=== PATIENT | male | born 1960 | race American Indian/Alaskan Native ===

== ENCOUNTER 2020-02-02 15:51 | Inpatient (IN) | payer OTHER ==
[~2020-02-02] VITALS: Ht 165.1 cm; Wt 63.1 kg
[2020-02-02] MEDS ORDERED: ALBUTEROL SULF 2.5 MG/0.5ML(0.5%) NEB SOLN HHN ONE (16:45)
[2020-02-02] MEDS ORDERED: levoFLOXacin 500MG 100 ML IV ONE (16:45)
[2020-02-02] MEDS ORDERED: IPRATROPIUM BROM 0.5 MG/2.5ML INH SOL HHN ONE (16:45)
[2020-02-02 17:23] LABS: Eosinophils # (auto) 0 10 ^3/uL (0-0.8); Mean Corpuscular Hemoglobin 37.4 pg (28.0-32.0)
[2020-02-02 17:25] LABS: Basophils # (auto) 0.2 10 ^3/uL (0-0.2); Basophils % (auto) 1.8 % (0.0-2.0); Eosinophils % (auto) 0.2 % (0.0-7.0); Hematocrit 30.2 % (41.0-53.0); Hemoglobin 10.4 g/dL (13.5-17.5); Lymphocytes # (auto) 1.9 10 ^3/uL (0.4-5.4); Lymphocytes % (auto) 21.1 % (10.0-50.0); Mean Corpuscular Hgb Conc. 34.3 g/dL (32.0-36.0); Mean Corpuscular Volume 108.9 fL (80.0-100.0); Monocytes # (auto) 0.7 10 ^3/uL (0-1.3); Monocytes % (auto) 7.7 % (0.0-12.0); Neutrophils # (auto) 6.1 10 ^3/uL (1.6-8.6); Neutrophils % (auto) 69.2 % (37.0-80.0); Platelet Count (auto) 93 10^3/uL (140-450); Red Blood Cells 2.77 10^6/uL (4.5-5.90); Red Cell Distribution Width 15.9 % (11.8-14.3); White Blood Cell 8.8 10^3/uL (4.4-10.8)
[2020-02-02 17:36] LABS: Alanine Aminotransferase 38 U/L (16-61); Albumin 2.6 g/dL (3.4-5.0); Anion Gap 9 (5-15); Aspartate Aminotransferase 107 U/L (15-37); BUN/Creatinine Ratio 12.5; Blood Urea Nitrogen 18 mg/dL (7-18); Calcium 8.4 mg/dL (8.5-10.1); Carbon Dioxide 20 mmol/L (21-32); Chloride 103 mmol/L (98-107); GFR African American 64 mL/min; GFR Non-African American 53 mL/min; Glucose 144 mg/dL (74-106); Potassium 3.7 mmol/L (3.5-5.1); Sodium 132 mmol/L (136-145)
[2020-02-02 17:40] LABS: Alkaline Phosphatase 89 U/L (45-117); Total Protein 7.3 g/dL (6.4-8.2)
[2020-02-02 17:41] LABS: Lactic Acid w/Reflex 2.1 mmol/L (0.4-2.0)
[2020-02-02] MEDS ORDERED: MORPHINE SULF INJ 2 MG/ML SYRINGE 1ML IV PRN (18:30)
[2020-02-02] MEDS ORDERED: traMADol HCL 50 MG TAB PO PRN (18:30)
[2020-02-02] MEDS ORDERED: ACETAMINOPHEN 500 MG TAB PO PRN (18:30)
[2020-02-02] MEDS ORDERED: TEMAZEPAM 15 MG CAP PO PRN (18:30)
[2020-02-02] MEDS ORDERED: OSELTAMIVIR 75 MG CAP PO ONE (18:30)
[2020-02-02] MEDS ORDERED: LACTULOSE 20Gm/30ML SOLN PO PRN (18:30)
[2020-02-02] MEDS ORDERED: PROMETHAZINE HCL 25 MG/ML 1ML IV PRN (18:30)
[2020-02-02] MEDS ORDERED: NITROGLYCERIN 0.4 MG SL TAB SL PRN (18:30)
[2020-02-02] MEDS ORDERED: ALBUTEROL SULF 2.5 MG/0.5ML(0.5%) NEB SOLN NEB PRN (18:30)
[2020-02-02 18:48] VITALS: BP 122/82
[2020-02-02] MEDS: methylPREDNISolone SOD SUCC 40 MG/ML VL IV SCH (19:08)
[2020-02-02] MEDS ORDERED: IOHEXOL 350 MG/ML 100ML IJ ONE (20:08)
[2020-02-02 20:53] VITALS: BP 146/84
[2020-02-02 21:00] VITALS: BP 146/84
[2020-02-02] MEDS: FAMOTIDINE 20 MG TAB PO SCH (21:28)
[2020-02-02] MEDS: SODIUM CHLOR 0.9% PF (SALINE LOCK) 10ML VIAL/SYR IV SCH (21:28)
[2020-02-02] MEDS: SODIUM CHLORIDE 0.9% 1,000 ML IV SCH (21:30)
[2020-02-02 23:06] LABS: Urine Bacteria FEW /hpf (None Seen); Urine Blood Negative /uL (Negative); Urine Hyaline Cast MANY /lpf (0 - 2); Urine Mucus FEW (None Seen); Urine Specific Gravity 1.021 (1.001-1.035); Urine WBC 2 /hpf (0 - 3)
[2020-02-02 23:09] LABS: Alcohol, Urine < 3.0 mg/dL (0-5); Amphetamine Screen, Urine NEGATIVE (NEGATIVE); Barbiturate Scree,Urine NEGATIVE (NEGATIVE); Benzodiazephine Screen, Urine NEGATIVE (NEGATIVE); Cannabinoid Screen, Urine NEGATIVE (NEGATIVE); Cocaine Screen, Urine NEGATIVE (NEGATIVE); Opiate Scree,Urine NEGATIVE (NEGATIVE); Phencyclidine Screen, Urine NEGATIVE (NEGATIVE)
[2020-02-03] MEDS: IPRATROPIUM BROM 0.5 MG/2.5ML INH SOL NEB SCH ×4 (00:13→18:58)
[2020-02-03] MEDS: ALBUTEROL SULF 2.5 MG/0.5ML(0.5%) NEB SOLN NEB SCH ×4 (00:13→18:59)
[2020-02-03 05:00] VITALS: BP 121/69
[2020-02-03 05:54] LABS: Basophils # (auto) 0 10 ^3/uL (0-0.2); Basophils % (auto) 0.4 % (0.0-2.0); Eosinophils # (auto) 0 10 ^3/uL (0-0.8); Hematocrit 27.2 % (41.0-53.0); Hemoglobin 9.6 g/dL (13.5-17.5); Lymphocytes % (auto) 17.1 % (10.0-50.0); Mean Corpuscular Hemoglobin 38.1 pg (28.0-32.0); Mean Corpuscular Hgb Conc. 35.4 g/dL (32.0-36.0); Mean Corpuscular Volume 107.6 fL (80.0-100.0); Monocytes # (auto) 0.2 10 ^3/uL (0-1.3); Monocytes % (auto) 4.1 % (0.0-12.0); Neutrophils # (auto) 4.5 10 ^3/uL (1.6-8.6); Neutrophils % (auto) 78.4 % (37.0-80.0); Nucleated Red Blood Cells % 0.1 %; Platelet Count (auto) 76 10^3/uL (140-450); Red Blood Cells 2.53 10^6/uL (4.5-5.90); Red Cell Distribution Width 15.5 % (11.8-14.3); White Blood Cell 5.7 10^3/uL (4.4-10.8)
[2020-02-03] MEDS: methylPREDNISolone SOD SUCC 40 MG/ML VL IV SCH (06:00)
[2020-02-03] MEDS: SODIUM CHLOR 0.9% PF (SALINE LOCK) 10ML VIAL/SYR IV SCH ×3 (06:02→21:42)
[2020-02-03 06:09] LABS: INR 1.53 (0.9-1.15); Partial Thromboplastin Time 34.5 sec (23.64-32.05)
[2020-02-03 06:12] LABS: Albumin 1.8 g/dL (3.4-5.0); BUN/Creatinine Ratio 14.7; Calcium 7.8 mg/dL (8.5-10.1); Magnesium 1.7 mg/dL (1.6-2.6); Potassium 3.7 mmol/L (3.5-5.1)
[2020-02-03 06:15] LABS: Total Protein 6.1 g/dL (6.4-8.2)
[2020-02-03 06:22] LABS: Lactic Acid w/Reflex 2.5 mmol/L (0.4-2.0)
[2020-02-03] MEDS: SODIUM CHLORIDE 0.9% 1,000 ML IV SCH ×3 (08:06→17:34)
[2020-02-03 09:00] VITALS: BP 114/70
[2020-02-03 09:04] LABS: Folate (Folic Acid) 0.59 ng/mL (5.38-24)
[2020-02-03] MEDS ORDERED: OSELTAMIVIR 30 MG CAP PO SCH (10:00)
[2020-02-03] MEDS: ENOXAPARIN SOD 40 MG/0.4 ML SYRINGE SC SCH (10:20)
[2020-02-03] MEDS: cefTRIAXone 1GM/50ML D5W 50 ML IV SCH (10:20)
[2020-02-03] MEDS: ENALAPRIL MALEATE 2.5 MG TAB PO SCH (10:20)
[2020-02-03] MEDS: AZITHROMYCIN 500MG/ 250ML 250 ML IV SCH (10:21)
[2020-02-03] MEDS ORDERED: FOLIC ACID 1 MG in D5W 5% 50 ML IV ONE (11:00)
[2020-02-03 11:11] LABS: Cholesterol 148 mg/dL (< 200)
[2020-02-03 11:13] LABS: HDL Cholesterol 12 mg/dL (40-59); LDL Cholesterol 110 mg/dL (< 100); Triglycerides 181 mg/dL (< 150)
[2020-02-03] MEDS ORDERED: FOLIC ACID 1 MG, MULTIPLE VITAMIN 10 ML, MAGNESIUM SULF SDV 50% 8 MEQ, THIAMINE INJ 100... INJ SCH ×5 (12:00)
[2020-02-03 12:26] LABS: Lactic Acid w/Reflex 2.3 mmol/L (0.4-2.0)
[2020-02-03 13:00] VITALS: BP 113/67
[2020-02-03 17:00] VITALS: BP 129/77
[2020-02-03] MEDS: FAMOTIDINE 20 MG TAB PO SCH (21:41)
[2020-02-03 22:00] VITALS: BP 117/64
[2020-02-03] MEDS: MAGNESIUM OXIDE 400 MG TAB PO SCH (22:00)
[2020-02-04] MEDS: SODIUM CHLORIDE 0.9% 1,000 ML IV SCH ×2 (00:40→06:34)
[2020-02-04] MEDS: IPRATROPIUM BROM 0.5 MG/2.5ML INH SOL NEB SCH ×2 (00:40→07:38)
[2020-02-04] MEDS: ALBUTEROL SULF 2.5 MG/0.5ML(0.5%) NEB SOLN NEB SCH ×2 (00:41→07:38)
[2020-02-04 02:06] VITALS: BP 119/69
[2020-02-04 05:00] VITALS: BP 119/70
[2020-02-04] MEDS: SODIUM CHLOR 0.9% PF (SALINE LOCK) 10ML VIAL/SYR IV SCH (05:43)
[2020-02-04] MEDS ORDERED: LEVOTHYROXINE SODIUM 25 MCG TAB PO SCH (07:00)
[2020-02-04 08:35] VITALS: BP 111/61
[2020-02-04] MEDS: cefTRIAXone 1GM/50ML D5W 50 ML IV SCH (09:00)
[2020-02-04] MEDS: AZITHROMYCIN 500MG/ 250ML 250 ML IV SCH (10:00)
[2020-02-04] MEDS: MAGNESIUM OXIDE 400 MG TAB PO SCH (10:00)
[2020-02-04] MEDS ORDERED: FOLIC ACID 1 MG in D5W 5% 50 ML IV SCH (10:00)
[2020-02-04] MEDS: ENALAPRIL MALEATE 2.5 MG TAB PO SCH (10:00)
[2020-02-04] MEDS: ENOXAPARIN SOD 40 MG/0.4 ML SYRINGE SC SCH (10:00)
[2020-02-06 08:51] LABS: Hepatitis B Surface Antibody Negative
[2020-02-06 09:24] LABS: Hepatitis A Total Antibody Negative
[2020-02-06 10:03] LABS: Hepatitis A Ab IgM Negative; Hepatitis B Core Total AB Negative
[2020-02-06 10:04] LABS: Hepatitis B Core IgM Negative; Hepatitis B Surface Antigen Negative (Negative); Hepatitis C Antibody Negative (Negative)
== END 2020-02-04 10:15 | disposition left against medical advice (07) | DRG 871 ==
LOC: ER 15:54 → TELE 15:55 → TELE-WESTW 20:50
PROVIDERS: ADMIT Internal Medicine; ATTEND Internal Medicine
PROC: 0W9G3ZZ Drainage of Peritoneal Cavity, Percutaneous Approach (ICD-10-PCS; principal; 2020-02-04)
DX: A41.9 Sepsis, unspecified organism (principal); J18.9 Pneumonia, unspecified organism; J44.1 Chronic obstructive pulmonary disease with (acute) exacerbation; J90 Pleural effusion, not elsewhere classified; J44.0 Chronic obstructive pulmonary disease with (acute) lower respiratory infection; F17.200 Nicotine dependence, unspecified, uncomplicated; K70.31 Alcoholic cirrhosis of liver with ascites; F10.10 Alcohol abuse, uncomplicated; I10 Essential (primary) hypertension; E53.8 Deficiency of other specified B group vitamins; Z71.6 Tobacco abuse counseling
CPT/HCPCS: 10022; 36415; 49083; 71046; 71275; 76700; 76942; 80053; 80061; 80074; 80307; 81001; 82105; 82607; 82746; 83036; 83605; 83735; 83880; 84439; 84443; 84484; 85025; 85379; 85610; 85730; 86703; 86704; 86706; 86708; 86803; 87040; 87045; 87070; 87086; 87205; 87340; 87427; 87493; 87804; 89051; 93005; 93306; 93970; 94640; 94644; G0378; G9035; J0696; J1956; J7060

== ENCOUNTER 2020-05-28 12:02 | Emergency (ER) | payer OTHER ==
[~2020-05-28] VITALS: Ht 167.6 cm; Wt 70.3 kg
[2020-05-28 14:27] VITALS: BP 118/70
[2020-05-28 14:33] LABS: Basophils # (auto) 0.1 10 ^3/uL (0-0.2); Eosinophils # (auto) 0.3 10 ^3/uL (0-0.8); Lymphocytes % (auto) 22.4 % (10.0-50.0); Monocytes # (auto) 0.7 10 ^3/uL (0-1.3); Neutrophils # (auto) 3.2 10 ^3/uL (1.6-8.6); Platelet Count (auto) 90 10^3/uL (140-450); White Blood Cell 5.6 10^3/uL (4.4-10.8)
[2020-05-28 14:34] LABS: Basophils % (auto) 1.5 % (0.0-2.0); Eosinophils % (auto) 5.9 % (0.0-7.0); Hematocrit 27.2 % (41.0-53.0); Hemoglobin 9.2 g/dL (13.5-17.5); Lymphocytes # (auto) 1.3 10 ^3/uL (0.4-5.4); Mean Corpuscular Hemoglobin 35.9 pg (28.0-32.0); Mean Corpuscular Hgb Conc. 33.8 g/dL (32.0-36.0); Mean Corpuscular Volume 106.1 fL (80.0-100.0); Monocytes % (auto) 12.2 % (0.0-12.0); Red Blood Cells 2.57 10^6/uL (4.5-5.90)
[2020-05-28 14:52] LABS: Albumin 2.2 g/dL (3.4-5.0); Calcium 8.3 mg/dL (8.5-10.1); Potassium 4.3 mmol/L (3.5-5.1)
[2020-05-28 14:56] LABS: BUN/Creatinine Ratio 14.9; Bilirubin, Total 2.5 mg/dL (0.2-1.0); Total Protein 6.3 g/dL (6.4-8.2)
[2020-05-28] MEDS ORDERED: MORPHINE SULF INJ 2 MG/ML SYRINGE 1ML IV PRN ×2 (15:30)
[2020-05-28] MEDS ORDERED: ACETAMINOPHEN 325 MG TAB PO PRN (15:30)
[2020-05-28] MEDS ORDERED: LORazepam 0.5 MG TAB PO PRN (15:30)
[2020-05-28] MEDS ORDERED: ALBUMIN 25% 50 ML IV ONE (15:30)
[2020-05-28] MEDS ORDERED: HYDROcodone-ACET 5/325MG TAB PO PRN (15:30)
[2020-05-28] MEDS ORDERED: ALUM & MAG HYDROX-SIMETH LIQ(MAALOX) 30 ML PO PRN (15:30)
[2020-05-28] MEDS ORDERED: ONDANSETRON HCL 4 MG/2 ML VIAL IV PRN (15:30)
[2020-05-28] MEDS ORDERED: NITROGLYCERIN 0.4 MG SL TAB SL PRN (15:30)
[2020-05-28] MEDS ORDERED: DOCUSATE SOD 100 MG CAP PO PRN (15:30)
[2020-05-28] MEDS ORDERED: FUROSEMIDE 40 MG/4 ML VIAL IV SCH (18:00)
[2020-05-28] MEDS ORDERED: ALBUMIN 25% 50 ML IV SCH (18:00)
[2020-05-28] MEDS ORDERED: SODIUM CHLOR 0.9% PF (SALINE LOCK) 10ML VIAL/SYR IV SCH (22:00)
[2020-05-29] MEDS ORDERED: PANTOPRAZOLE 40 MG/10 ML VIAL INJ IV SCH (10:00)
[2020-05-29] MEDS ORDERED: SPIRONOLACTONE 25 MG TAB PO SCH (10:00)
== END 2020-05-28 16:03 | disposition left against medical advice (07) ==
LOC: ER 12:02
DX: K74.60 Unspecified cirrhosis of liver (principal); R14.0 Abdominal distension (gaseous); J90 Pleural effusion, not elsewhere classified; I50.9 Heart failure, unspecified; J44.9 Chronic obstructive pulmonary disease, unspecified; F17.210 Nicotine dependence, cigarettes, uncomplicated
CPT/HCPCS: 36415; 71045; 74176; 80053; 83690; 85025

== ENCOUNTER 2020-06-12 20:10 | Inpatient (IN) | payer OTHER ==
[~2020-06-12] VITALS: Ht 167.6 cm; Wt 79.8 kg
[2020-06-12 22:18] LABS: Basophils # (auto) 0.1 10 ^3/uL (0-0.2); Eosinophils # (auto) 0.4 10 ^3/uL (0-0.8); Hemoglobin 9.7 g/dL (13.5-17.5); Lymphocytes # (auto) 1.3 10 ^3/uL (0.4-5.4)
[2020-06-12 22:20] LABS: Basophils % (auto) 1.1 % (0.0-2.0); Eosinophils % (auto) 7.7 % (0.0-7.0); Hematocrit 28.8 % (41.0-53.0); Lymphocytes % (auto) 25.1 % (10.0-50.0); Mean Corpuscular Hemoglobin 35.7 pg (28.0-32.0); Mean Corpuscular Hgb Conc. 33.7 g/dL (32.0-36.0); Monocytes # (auto) 0.7 10 ^3/uL (0-1.3); Monocytes % (auto) 13.1 % (0.0-12.0); Neutrophils # (auto) 2.7 10 ^3/uL (1.6-8.6); Nucleated Red Blood Cells % 0.1 %; Red Blood Cells 2.71 10^6/uL (4.5-5.90); Red Cell Distribution Width 15.5 % (11.8-14.3); White Blood Cell 5.1 10^3/uL (4.4-10.8)
[2020-06-12 22:23] LABS: Platelet Count (auto) 79 10^3/uL (140-450)
[2020-06-12] MEDS ORDERED: FUROSEMIDE 20 MG/2 ML VIAL IV ONE (22:30)
[2020-06-12] MEDS ORDERED: levoFLOXacin 750MG 150 ML IV ONE (22:30)
[2020-06-12] MEDS ORDERED: SPIRONOLACTONE 25 MG TAB PO ONE (22:30)
[2020-06-12 22:34] LABS: INR 1.33 (0.9-1.15); Partial Thromboplastin Time 30.1 sec (23.64-32.05)
[2020-06-12 22:35] LABS: Albumin 2.3 g/dL (3.4-5.0); Anion Gap 8 (5-15); Calcium 8.3 mg/dL (8.5-10.1); Carbon Dioxide 20 mmol/L (21-32); Chloride 109 mmol/L (98-107); Glucose 88 mg/dL (74-106); Potassium 3.8 mmol/L (3.5-5.1); Sodium 137 mmol/L (136-145)
[2020-06-12 22:44] LABS: Alanine Aminotransferase 25 U/L (16-61); Alkaline Phosphatase 82 U/L (45-117); Aspartate Aminotransferase 46 U/L (15-37); BUN/Creatinine Ratio 16.3; Bilirubin, Total 2.7 mg/dL (0.2-1.0); Blood Urea Nitrogen 22 mg/dL (7-18); GFR African American 69 mL/min; GFR Non-African American 57 mL/min; Total Protein 6.3 g/dL (6.4-8.2)
[2020-06-13 00:48] LABS: Urine Bacteria FEW /hpf (None Seen); Urine Blood Negative /uL (Negative); Urine Hyaline Cast MOD /lpf (0 - 2); Urine Mucus FEW (None Seen); Urine Specific Gravity 1.021 (1.001-1.035); Urine WBC 4 /hpf (0 - 3)
[2020-06-13 00:58] LABS: Amphetamine Screen, Urine NEGATIVE (NEGATIVE); Barbiturate Scree,Urine NEGATIVE (NEGATIVE); Benzodiazephine Screen, Urine NEGATIVE (NEGATIVE); Cannabinoid Screen, Urine NEGATIVE (NEGATIVE); Cocaine Screen, Urine NEGATIVE (NEGATIVE); Opiate Scree,Urine NEGATIVE (NEGATIVE); Phencyclidine Screen, Urine NEGATIVE (NEGATIVE)
[2020-06-13] MEDS ORDERED: ONDANSETRON HCL 4 MG/2 ML VIAL IV PRN (03:00)
[2020-06-13] MEDS ORDERED: TEMAZEPAM 15 MG CAP PO PRN (03:00)
[2020-06-13] MEDS ORDERED: ACETAMINOPHEN 325 MG TAB PO PRN (03:00)
[2020-06-13 04:30] VITALS: BP 122/69
--- NOTE | 2020-06-13 04:30 | NUR ---
MS admit from ER to Covid-19 Unit TERRI,ROY admitted to tele/MS. Patient oriented to CELESTE HOOEKR, primary RN, unit, room, bed, and unit policies regarding patient care and visiting hours. Patient is alert and oriented x4. Patient does report periods of confusion. Patient denies shortness of breath or pain at this time. No sign/symptoms of distress noted or verbalized at this time. Instructed on plan of care and encouraged patient to call for assistance as needed, patient verbalized understanding. Bed is locked in lowest position, side rails x2 are up, call light is within reach, and bed alarm is on.
--- NOTE | 2020-06-13 05:10 | NUR ---
Picture Erythema noted to right lower leg. Patient states the erythema developed after his last hospital visit. Picture taken of right lower leg for reference.
[2020-06-13 05:32] VITALS: BP 122/69
--- NOTE | 2020-06-13 06:51 | NUR ---
MRSA Swab MRSA swab collected and sent to lab via bullet.
--- NOTE | 2020-06-13 07:30 | NUR ---
Opening Shift Note Assumed care of patient, awake and alert. No S/S of distress/SOB or pain on room air. Instructed on POC and to call for assist PRN, will continue to monitor for changes Q1hr and PRN. Bed in low and locked position, rails up x2, no-slip socks on.
[2020-06-13 08:40] VITALS: BP 124/76
[2020-06-13] MEDS: PANTOPRAZOLE 40 MG TAB PO SCH (09:21)
[2020-06-13] MEDS: LACTULOSE 20Gm/30ML SOLN PO SCH ×2 (09:21→22:19)
[2020-06-13] MEDS ORDERED: SPIRONOLACTONE 25 MG TAB PO SCH (10:00)
[2020-06-13] MEDS ORDERED: FUROSEMIDE 40 MG TAB PO SCH (10:00)
--- NOTE | 2020-06-13 10:34 | NUR ---
Assessment Patient is a 59-year-old male who is alert and oriented. Prior to admission patient live home with his Janie. Patient informed me he can care for his own ADLs. Patient informed me he does not have any medical equipment or home oxygen at home. Per patient he will return home to his prior living arrangements post discharge and his daughter Rajni will transport him home. Advised patient there is a social service consult for advance directive and cane. Patient accepted the advance directive information. Informed patient his health plan does not cover a cane. Patient informed me he does not need any medical equipment at this time. Informed patient I will give the advance directive information to his bedside nurse . Informed patient he has the right to participate in all discharge planning. Patient verbalized understanding and agreed to discharge plan. Addendum: 06/13/20 at 1035 by HEIKE MANSFIELD Amended: Links added.
[2020-06-13 12:40] VITALS: BP 110/76
--- NOTE | 2020-06-13 13:00 | NUR ---
DR RYDER AT BEDSIDE NEW ORDERS TO BE ADDED.
--- NOTE | 2020-06-13 15:12 | NUR ---
VERIFIED PATIENT NEEDS PARACENTESIS CALL FROM [facility]OLOGY-[facility]TR[facility] TO CONFIRM THAT PATIENT WILL NEED PARACENTESIS PRIOR TO COVID RESULTS AVAILABILITY, PER DR RYDER, PROCEED WITH PARACENTESIS TODAY. MESSAGE LEFT WITH ULTRASOUND.
[2020-06-13 17:00] VITALS: BP 123/76
--- NOTE | 2020-06-13 19:30 | NUR ---
Opening Shift Note Assumed care of patient, awake and alert x4. Patient denies shortness of breath or pain at this time. Patient is on room air, SPO2: 92% at this time. Instructed on plan of care and encouraged patient to call for assistance as needed, patient verbalized understanding. Bed is locked in lowest position, side rails x 2 are up, call light is within reach, and bed alarm is on.
[2020-06-13 22:00] VITALS: BP 107/65
[2020-06-13] MEDS ORDERED: levoFLOXacin 500MG 100 ML IV SCH (22:00)
--- NOTE | 2020-06-13 22:28 | NUR ---
Spoke with GERONIMO Ramsay RE: Wheezing Notified GERONIMO Ramsay that patient has increased wheezing throughout lungs. GERONIMO Ramsay made aware that patient has a paracentesis pending that will take place tomorrow. Orders received for Lasix 20mg IV x1. Order read back and verified. Will carry out as received.
[2020-06-13] MEDS ORDERED: FUROSEMIDE 20 MG/2 ML VIAL IV ONE (22:30)
[2020-06-14 05:39] VITALS: BP 101/60
[2020-06-14 06:23] LABS: Basophils # (auto) 0 10 ^3/uL (0-0.2); Basophils % (auto) 0.7 % (0.0-2.0); Eosinophils # (auto) 0.7 10 ^3/uL (0-0.8); Eosinophils % (auto) 12.8 % (0.0-7.0); Hematocrit 25.7 % (41.0-53.0); Hemoglobin 8.7 g/dL (13.5-17.5); Lymphocytes # (auto) 1.2 10 ^3/uL (0.4-5.4); Lymphocytes % (auto) 21.7 % (10.0-50.0); Mean Corpuscular Hemoglobin 35.7 pg (28.0-32.0); Monocytes # (auto) 0.7 10 ^3/uL (0-1.3); Monocytes % (auto) 12.7 % (0.0-12.0); Neutrophils # (auto) 2.9 10 ^3/uL (1.6-8.6); Neutrophils % (auto) 52.1 % (37.0-80.0); Nucleated Red Blood Cells % 0.2 %; Platelet Count (auto) 62 10^3/uL (140-450); Red Blood Cells 2.45 10^6/uL (4.5-5.90); White Blood Cell 5.6 10^3/uL (4.4-10.8)
[2020-06-14 06:44] LABS: Potassium 3.2 mmol/L (3.5-5.1)
[2020-06-14 06:52] LABS: Albumin 1.9 g/dL (3.4-5.0); BUN/Creatinine Ratio 19.3; Bilirubin, Total 2.4 mg/dL (0.2-1.0); Calcium 8.3 mg/dL (8.5-10.1); Total Protein 5.3 g/dL (6.4-8.2)
--- NOTE | 2020-06-14 07:24 | NUR ---
Opening Shift Note Assumed care of patient, resting comfortably. No S/S of distress/SOB or pain. Instructed on POC and to call for assist PRN, will continue to monitor for changes Q1hr and PRN. Bed in low and locked position, rails up x2, no-slip socks on.
[2020-06-14 09:00] VITALS: BP 101/67
[2020-06-14] MEDS ORDERED: cefTRIAXone 1GM/50ML D5W 50 ML IV SCH (09:00)
[2020-06-14] MEDS: PANTOPRAZOLE 40 MG TAB PO SCH (09:04)
--- NOTE | 2020-06-14 09:40 | NUR ---
PATIENT CONSENTED FOR PARACENTESIS
[2020-06-14] MEDS: LACTULOSE 20Gm/30ML SOLN PO SCH (10:00)
[2020-06-14] MEDS ORDERED: MULTIPLE VITAMINS W/ MINERALS TAB PO SCH (10:00)
[2020-06-14] MEDS ORDERED: THIAMINE HCL 100 MG TAB PO SCH (10:00)
[2020-06-14] MEDS ORDERED: FOLIC ACID 1 MG TAB PO SCH (10:00)
[2020-06-14] MEDS ORDERED: FUROSEMIDE 40 MG/4 ML VIAL IV SCH (10:00)
[2020-06-14] MEDS ORDERED: AZITHROMYCIN 250 MG TAB PO SCH (10:00)
--- NOTE | 2020-06-14 11:25 | NUR ---
PATIENT REQUESTING TO GO DOWNSTAIRS TO SMOKE EDUCATED PATIENT ON NEED TO REMAIN ISOLATED UNTIL RESULTS FROM THE COVID TEST RETURN, OFFERED PATIENT NICOTINE PATCH BUT HE REFUSES. EDUCATED PATIENT ON HOSPITAL POLICY OF NO SMOKING AND THAT UNFORTUNATELY HE CANNOT RETURN TO HIS ROOM AFTER GOING DOWNSTAIRS AND THAT HE NEEDS TO REMAIN IN THE ROOM, PATIENT VERBALIZES UNDERSTANDING AND WISHES TO LEAVE THE HOSPITAL AMA, HE HAS BEEN WAITING FOR A PARACENTESIS. INFORMED PATIENT THAT HE STILL NEEDS THIS PROCEDURE AND THAT IF HE CAN WAIT FOR IT AND HIS RESULTS TO COME BACK WE CAN RE-EVALUATE IF HE CAN GO DOWNSTAIRS TO SMOKE. PATIENT STILL NOT UNDERSTANDING THAT HE CANNOT LEAVE TO SMOKE AND RETURN AT THIS MOMENT. PATIENT TRYING TO FIND A RIDE HOME.
--- NOTE | 2020-06-14 12:50 | NUR ---
PATIENT AMA PATIENT UNWILLING TO WAIT FOR COVID RESULTS SO THAT HE MAY POSSIBLY BE ABLE TO GO DOWNSTAIRS TO SMOKE AND RETURN TO ROOM, HE IS ALSO UNWILLING TO RECEIVE A NICOTINE PATCH. PATIENT STATED HES BEEN WAITING FOR 2 DAYS FOR HIS PARACENTESIS WELL AND THAT HE IS UNWILLING TO WAIT ANY LONGER. PATIENT SIGNED HIMSELF OUT AMA, DR RYDER AND CHARGE NURSE NOTIFIED. IV REMOVED WITH CATHETER INTACT AND LAZO CATHETER D/C'D. PATIENTS LEFT UNIT WITH ESCORT OF SECURITY AND EVS, DOWNSTAIRS TO SMOKING AREA IN NO DISTRESS AND WITH ALL PERSONAL BELONGINGS.
[2020-06-14 17:00] VITALS: BP 116/70
== END 2020-06-14 12:30 | disposition left against medical advice (07) | DRG 441 ==
LOC: EDBD 20:10 → EDSEX 20:10 → ER 20:13 → OVERFLOW 20:14 → EAST 06-13 04:30
PROVIDERS: ADMIT Nurse Practitioner; ATTEND Internal Medicine
DX: K72.90 Hepatic failure, unspecified without coma (principal); E43 Unspecified severe protein-calorie malnutrition; N17.9 Acute kidney failure, unspecified; K70.31 Alcoholic cirrhosis of liver with ascites; I50.9 Heart failure, unspecified; F10.10 Alcohol abuse, uncomplicated; Z20.828 Contact with and (suspected) exposure to other viral communicable diseases; Z53.29 Procedure and treatment not carried out because of patient's decision for other reasons; F17.210 Nicotine dependence, cigarettes, uncomplicated; Y90.9 Presence of alcohol in blood, level not specified; J44.9 Chronic obstructive pulmonary disease, unspecified
CPT/HCPCS: 36415; 71045; 80053; 80307; 81001; 82140; 82728; 83880; 84484; 85025; 85610; 85730; 86850; 86900; 86901; 87081; 93005; 96365; 96375; G0378; J0696; J1956

== ENCOUNTER 2020-06-15 19:53 | Inpatient (IN) | payer OTHER ==
[~2020-06-15] VITALS: Ht 167.6 cm; Wt 72.5 kg
[2020-06-15 20:57] LABS: Basophils # (auto) 0.1 10 ^3/uL (0-0.2); Eosinophils # (auto) 0.6 10 ^3/uL (0-0.8); Hemoglobin 9.5 g/dL (13.5-17.5); Mean Corpuscular Volume 105.4 fL (80.0-100.0)
[2020-06-15 20:59] LABS: Basophils % (auto) 1.3 % (0.0-2.0); Eosinophils % (auto) 8.9 % (0.0-7.0); Hematocrit 28.4 % (41.0-53.0); Lymphocytes % (auto) 28.9 % (10.0-50.0); Mean Corpuscular Hemoglobin 35.2 pg (28.0-32.0); Mean Corpuscular Hgb Conc. 33.4 g/dL (32.0-36.0); Monocytes # (auto) 0.7 10 ^3/uL (0-1.3); Monocytes % (auto) 10.2 % (0.0-12.0); Neutrophils # (auto) 3.6 10 ^3/uL (1.6-8.6); Neutrophils % (auto) 50.7 % (37.0-80.0); Platelet Count (auto) 73 10^3/uL (140-450); Red Cell Distribution Width 15.5 % (11.8-14.3)
[2020-06-15 21:11] LABS: Albumin 2.2 g/dL (3.4-5.0); BUN/Creatinine Ratio 15.5; Calcium 7.9 mg/dL (8.5-10.1); Potassium 3.3 mmol/L (3.5-5.1)
[2020-06-15 21:14] LABS: Total Protein 6.2 g/dL (6.4-8.2)
[2020-06-15 21:15] LABS: INR 1.33 (0.9-1.15); Partial Thromboplastin Time 34.2 sec (23.0-31.2)
[2020-06-15] MEDS ORDERED: LORazepam 2MG/ML-1ML VIAL IV ONE (23:15)
[2020-06-15] MEDS ORDERED: ALUM & MAG HYDROX-SIMETH LIQ(MAALOX) 30 ML PO PRN (23:30)
[2020-06-15] MEDS ORDERED: ONDANSETRON HCL 4 MG/2 ML VIAL IV PRN ×2 (23:30)
[2020-06-15] MEDS ORDERED: ACETAMINOPHEN 325 MG TAB PO PRN (23:30)
[2020-06-15] MEDS ORDERED: MORPHINE SULF INJ 2 MG/ML SYRINGE 1ML IV PRN (23:30)
[2020-06-15] MEDS ORDERED: DOCUSATE SOD 100 MG CAP PO PRN (23:30)
[2020-06-15] MEDS ORDERED: HYDROcodone-ACET 5/325MG TAB PO PRN (23:30)
[2020-06-15] MEDS ORDERED: LORazepam 0.5 MG TAB PO PRN (23:30)
[2020-06-15] MEDS ORDERED: LORazepam 2MG/ML-1ML VIAL ONE (23:30)
[2020-06-16] VITALS (7 sets, daily range): BP systolic 118–132; BP diastolic 66–95
[2020-06-16] MEDS: SODIUM CHLORIDE 0.9% 1,000 ML IV SCH ×2 (00:36→02:30)
[2020-06-16] MEDS ORDERED: levoFLOXacin 500MG 100 ML IV ONE (01:00)
[2020-06-16] MEDS ORDERED: FUROSEMIDE 20 MG TAB PO ONE (02:15)
[2020-06-16] MEDS: ALBUTEROL SULF 2.5 MG/0.5ML(0.5%) NEB SOLN NEB SCH ×6 (02:41→23:51)
[2020-06-16] MEDS: IPRATROPIUM BROM 0.5 MG/2.5ML INH SOL NEB SCH ×5 (06:33→23:51)
[2020-06-16 08:21] LABS: Basophils # (auto) 0 10 ^3/uL (0-0.2); Red Blood Cells 2.56 10^6/uL (4.5-5.90); White Blood Cell 6.7 10^3/uL (4.4-10.8)
[2020-06-16 08:23] LABS: Basophils % (auto) 0.5 % (0.0-2.0); Eosinophils # (auto) 0.5 10 ^3/uL (0-0.8); Eosinophils % (auto) 7.9 % (0.0-7.0); Hematocrit 26.9 % (41.0-53.0); Hemoglobin 9.1 g/dL (13.5-17.5); Lymphocytes # (auto) 1.6 10 ^3/uL (0.4-5.4); Lymphocytes % (auto) 23.9 % (10.0-50.0); Mean Corpuscular Hemoglobin 35.7 pg (28.0-32.0); Mean Corpuscular Hgb Conc. 33.9 g/dL (32.0-36.0); Mean Corpuscular Volume 105.5 fL (80.0-100.0); Monocytes # (auto) 0.7 10 ^3/uL (0-1.3); Monocytes % (auto) 10.2 % (0.0-12.0); Neutrophils # (auto) 3.8 10 ^3/uL (1.6-8.6); Neutrophils % (auto) 57.5 % (37.0-80.0); Nucleated Red Blood Cells % 0.1 %; Platelet Count (auto) 67 10^3/uL (140-450); Red Cell Distribution Width 15.2 % (11.8-14.3)
[2020-06-16 08:40] LABS: Calcium 8.2 mg/dL (8.5-10.1); Potassium 3.5 mmol/L (3.5-5.1)
[2020-06-16 08:44] LABS: BUN/Creatinine Ratio 16.7
[2020-06-16] MEDS: FUROSEMIDE 40 MG TAB PO SCH (10:00)
[2020-06-16] MEDS: LACTULOSE 20Gm/30ML SOLN PO SCH ×2 (10:42→22:36)
[2020-06-16] MEDS: PANTOPRAZOLE 40 MG TAB PO SCH (10:42)
[2020-06-16] MEDS: SPIRONOLACTONE 25 MG TAB PO SCH (10:43)
[2020-06-16] MEDS ORDERED: chlordiazePOXIDE HCL 25 MG CAP PO SCH (14:45)
[2020-06-16] MEDS: chlordiazePOXIDE HCL 25 MG CAP PO SCH ×2 (14:51→22:36)
[2020-06-17] MEDS: levoFLOXacin 250MG 50 ML IV SCH (01:00)
[2020-06-17 05:00] VITALS: BP 108/65
[2020-06-17] MEDS: chlordiazePOXIDE HCL 25 MG CAP PO SCH ×3 (05:50→21:11)
[2020-06-17] MEDS: IPRATROPIUM BROM 0.5 MG/2.5ML INH SOL NEB SCH ×4 (06:35→18:00)
[2020-06-17] MEDS: ALBUTEROL SULF 2.5 MG/0.5ML(0.5%) NEB SOLN NEB SCH ×4 (06:35→18:00)
[2020-06-17 08:00] VITALS: BP 118/83
[2020-06-17] MEDS: SODIUM CHLORIDE 0.9% 1,000 ML IV SCH (08:48)
[2020-06-17 09:00] VITALS: BP 96/63
[2020-06-17] MEDS: PANTOPRAZOLE 40 MG TAB PO SCH (10:15)
[2020-06-17] MEDS: SPIRONOLACTONE 25 MG TAB PO SCH (10:15)
[2020-06-17] MEDS: FUROSEMIDE 40 MG TAB PO SCH (10:17)
[2020-06-17] MEDS: LACTULOSE 20Gm/30ML SOLN PO SCH ×2 (10:17→21:11)
[2020-06-17] MEDS: FOLIC ACID 1 MG, MULTIPLE VITAMIN 10 ML, MAGNESIUM SULF SDV 50% 8 MEQ, THIAMINE INJ 100... INJ SCH ×5 (12:00)
[2020-06-17 13:00] VITALS: BP 113/64
[2020-06-17 17:18] VITALS: BP 116/61
[2020-06-17] MEDS: TEMAZEPAM 15 MG CAP PO PRN (21:12)
[2020-06-17 21:58] VITALS: BP 103/63
[2020-06-18] VITALS (8 sets, daily range): BP systolic 78–145; BP diastolic 41–72
[2020-06-18] MEDS: levoFLOXacin 250MG 50 ML IV SCH (00:46)
[2020-06-18] MEDS: SODIUM CHLORIDE 0.9% 1,000 ML IV SCH ×2 (00:49→22:14)
[2020-06-18] MEDS: ALBUTEROL SULF 2.5 MG/0.5ML(0.5%) NEB SOLN NEB PRN ×3 (04:34→11:00)
[2020-06-18] MEDS: IPRATROPIUM BROM 0.5 MG/2.5ML INH SOL NEB PRN ×3 (04:34→11:00)
[2020-06-18] MEDS: chlordiazePOXIDE HCL 25 MG CAP PO SCH ×3 (05:21→22:15)
[2020-06-18] MEDS: SPIRONOLACTONE 25 MG TAB PO SCH (10:00)
[2020-06-18] MEDS: PANTOPRAZOLE 40 MG TAB PO SCH (10:00)
[2020-06-18] MEDS: LACTULOSE 20Gm/30ML SOLN PO SCH ×2 (10:00→22:00)
[2020-06-18] MEDS ORDERED: ALBUMIN 25% 100 ML IV ONE ×2 (13:30→17:00)
[2020-06-18] MEDS: FUROSEMIDE 40 MG TAB PO SCH (14:39)
[2020-06-18] MEDS ORDERED: SODIUM CHLORIDE 0.9% 500 ML IV ONE (15:15)
[2020-06-18] MEDS: FOLIC ACID 1 MG, MULTIPLE VITAMIN 10 ML, MAGNESIUM SULF SDV 50% 8 MEQ, THIAMINE INJ 100... INJ SCH ×5 (15:16)
[2020-06-18] MEDS: TEMAZEPAM 15 MG CAP PO PRN (22:15)
[2020-06-19 05:00] VITALS: BP 80/48
[2020-06-19] MEDS: chlordiazePOXIDE HCL 25 MG CAP PO SCH ×3 (05:52→21:56)
[2020-06-19] MEDS: ALBUTEROL SULF 2.5 MG/0.5ML(0.5%) NEB SOLN NEB PRN (08:40)
[2020-06-19] MEDS: IPRATROPIUM BROM 0.5 MG/2.5ML INH SOL NEB PRN (08:40)
[2020-06-19 09:00] VITALS: BP 86/58
[2020-06-19] MEDS: LACTULOSE 20Gm/30ML SOLN PO SCH ×2 (10:00→21:53)
[2020-06-19 10:49] LABS: Basophils # (auto) 0.1 10 ^3/uL (0-0.2); Eosinophils # (auto) 0.6 10 ^3/uL (0-0.8); Eosinophils % (auto) 8.5 % (0.0-7.0); Lymphocytes # (auto) 1.2 10 ^3/uL (0.4-5.4); Monocytes # (auto) 0.7 10 ^3/uL (0-1.3); Neutrophils # (auto) 4.4 10 ^3/uL (1.6-8.6)
[2020-06-19 10:51] LABS: Basophils % (auto) 0.8 % (0.0-2.0); Hematocrit 26.9 % (41.0-53.0); Hemoglobin 8.9 g/dL (13.5-17.5); Lymphocytes % (auto) 17.3 % (10.0-50.0); Mean Corpuscular Hgb Conc. 33.2 g/dL (32.0-36.0); Mean Corpuscular Volume 105.7 fL (80.0-100.0); Monocytes % (auto) 9.6 % (0.0-12.0); Neutrophils % (auto) 63.8 % (37.0-80.0); Nucleated Red Blood Cells % 0.1 %; Platelet Count (auto) 52 10^3/uL (140-450); Red Blood Cells 2.55 10^6/uL (4.5-5.90); Red Cell Distribution Width 15.5 % (11.8-14.3); White Blood Cell 6.9 10^3/uL (4.4-10.8)
[2020-06-19] MEDS: PANTOPRAZOLE 40 MG TAB PO SCH (11:01)
[2020-06-19 11:10] LABS: Potassium 3.3 mmol/L (3.5-5.1)
[2020-06-19 11:13] LABS: INR 1.52 (0.9-1.15)
[2020-06-19 11:16] LABS: BUN/Creatinine Ratio 20.9; Bilirubin, Total 2.4 mg/dL (0.2-1.0); Calcium 7.8 mg/dL (8.5-10.1); Magnesium 2.5 mg/dL (1.6-2.6); Total Protein 4.7 g/dL (6.4-8.2)
[2020-06-19] MEDS: MIDODRINE HCL 10 MG TAB PO SCH ×2 (12:38→18:34)
[2020-06-19] MEDS: FOLIC ACID 1 MG, MULTIPLE VITAMIN 10 ML, MAGNESIUM SULF SDV 50% 8 MEQ, THIAMINE INJ 100... INJ SCH ×5 (12:40)
[2020-06-19 13:00] VITALS: BP 87/47
[2020-06-19] MEDS ORDERED: POTASSIUM CHL 20 Meq TABLET PO ONE (14:45)
[2020-06-19 17:00] VITALS: BP 87/52
[2020-06-19] MEDS: SODIUM CHLORIDE 0.9% 1,000 ML IV SCH (20:11)
[2020-06-19 21:55] VITALS: BP 95/57
[2020-06-20] MEDS: SODIUM CHLORIDE 0.9% 1,000 ML IV SCH ×2 (03:06→20:52)
[2020-06-20 05:03] VITALS: BP 81/43
[2020-06-20 05:22] LABS: Monocytes # (auto) 0.7 10 ^3/uL (0-1.3); Nucleated Red Blood Cells % 0.1 %; White Blood Cell 6.9 10^3/uL (4.4-10.8)
[2020-06-20 05:24] LABS: Basophils # (auto) 0.1 10 ^3/uL (0-0.2); Basophils % (auto) 0.8 % (0.0-2.0); Eosinophils # (auto) 0.6 10 ^3/uL (0-0.8); Eosinophils % (auto) 8.9 % (0.0-7.0); Hematocrit 26.6 % (41.0-53.0); Hemoglobin 9.1 g/dL (13.5-17.5); Lymphocytes # (auto) 1.4 10 ^3/uL (0.4-5.4); Lymphocytes % (auto) 20.7 % (10.0-50.0); Mean Corpuscular Hemoglobin 35.7 pg (28.0-32.0); Mean Corpuscular Hgb Conc. 34.1 g/dL (32.0-36.0); Mean Corpuscular Volume 104.6 fL (80.0-100.0); Monocytes % (auto) 10.7 % (0.0-12.0); Neutrophils # (auto) 4.1 10 ^3/uL (1.6-8.6); Neutrophils % (auto) 58.9 % (37.0-80.0); Platelet Count (auto) 56 10^3/uL (140-450); Red Blood Cells 2.54 10^6/uL (4.5-5.90); Red Cell Distribution Width 15.1 % (11.8-14.3)
[2020-06-20 05:43] LABS: Calcium 7.4 mg/dL (8.5-10.1); Potassium 3.7 mmol/L (3.5-5.1)
[2020-06-20 05:47] LABS: BUN/Creatinine Ratio 25.4
[2020-06-20] MEDS: chlordiazePOXIDE HCL 25 MG CAP PO SCH ×3 (06:27→21:34)
[2020-06-20] MEDS: MIDODRINE HCL 10 MG TAB PO SCH ×3 (06:27→18:36)
[2020-06-20 08:00] VITALS: BP 98/62
[2020-06-20] MEDS ORDERED: ALBUMIN 5% 250 ML IV ONE (09:45)
[2020-06-20] MEDS: LACTULOSE 20Gm/30ML SOLN PO SCH ×2 (10:00→21:34)
[2020-06-20 12:00] VITALS: BP 96/56
[2020-06-20] MEDS: Ensure HIGH Protein Chocolate 8oz Bottle PO SCH ×3 (12:00→21:36)
[2020-06-20] MEDS: PANTOPRAZOLE 40 MG TAB PO SCH (12:01)
[2020-06-20] MEDS: FOLIC ACID 1 MG, MULTIPLE VITAMIN 10 ML, MAGNESIUM SULF SDV 50% 8 MEQ, THIAMINE INJ 100... INJ SCH ×5 (15:02)
[2020-06-20 17:01] VITALS: BP 100/56
[2020-06-20 20:00] VITALS: BP 90/59
[2020-06-20 22:00] VITALS: BP 90/59
[2020-06-21 05:00] VITALS: BP 101/60
[2020-06-21 05:48] LABS: Basophils # (auto) 0.1 10 ^3/uL (0-0.2); Basophils % (auto) 1.1 % (0.0-2.0); Eosinophils # (auto) 0.6 10 ^3/uL (0-0.8); Eosinophils % (auto) 10.5 % (0.0-7.0); Hematocrit 27.9 % (41.0-53.0); Hemoglobin 9.4 g/dL (13.5-17.5); Lymphocytes # (auto) 1.4 10 ^3/uL (0.4-5.4); Lymphocytes % (auto) 24.6 % (10.0-50.0); Mean Corpuscular Hemoglobin 35.3 pg (28.0-32.0); Mean Corpuscular Hgb Conc. 33.6 g/dL (32.0-36.0); Mean Corpuscular Volume 104.8 fL (80.0-100.0); Monocytes # (auto) 0.7 10 ^3/uL (0-1.3); Monocytes % (auto) 11.8 % (0.0-12.0); Nucleated Red Blood Cells % 0.1 %; Platelet Count (auto) 54 10^3/uL (140-450); Red Blood Cells 2.67 10^6/uL (4.5-5.90); Red Cell Distribution Width 15.6 % (11.8-14.3); White Blood Cell 5.8 10^3/uL (4.4-10.8)
[2020-06-21 06:08] LABS: Albumin 2.1 g/dL (3.4-5.0); Calcium 7.5 mg/dL (8.5-10.1); Potassium 3.9 mmol/L (3.5-5.1)
[2020-06-21 06:13] LABS: BUN/Creatinine Ratio 26.9; Total Protein 4.7 g/dL (6.4-8.2)
[2020-06-21] MEDS: MIDODRINE HCL 10 MG TAB PO SCH ×3 (06:23→17:54)
[2020-06-21] MEDS: Ensure HIGH Protein Chocolate 8oz Bottle PO SCH ×4 (06:23→21:20)
[2020-06-21] MEDS: chlordiazePOXIDE HCL 25 MG CAP PO SCH ×3 (06:23→21:19)
[2020-06-21 08:00] VITALS: BP 102/57
[2020-06-21] MEDS: PANTOPRAZOLE 40 MG TAB PO SCH (10:19)
[2020-06-21] MEDS: LACTULOSE 20Gm/30ML SOLN PO SCH ×2 (10:19→21:19)
[2020-06-21 12:00] VITALS: BP 104/59
[2020-06-21] MEDS: FOLIC ACID 1 MG, MULTIPLE VITAMIN 10 ML, MAGNESIUM SULF SDV 50% 8 MEQ, THIAMINE INJ 100... INJ SCH ×5 (12:21)
[2020-06-21 16:56] VITALS: BP 104/50
[2020-06-21 18:55] VITALS: BP 104/50
[2020-06-21] MEDS: SODIUM CHLORIDE 0.9% 1,000 ML IV SCH (21:10)
[2020-06-21 22:00] VITALS: BP 83/55
[2020-06-22 05:00] VITALS: BP 95/54
[2020-06-22] MEDS: SODIUM CHLORIDE 0.9% 1,000 ML IV SCH (05:59)
[2020-06-22] MEDS: Ensure HIGH Protein Chocolate 8oz Bottle PO SCH (06:00)
[2020-06-22] MEDS: chlordiazePOXIDE HCL 25 MG CAP PO SCH (06:02)
[2020-06-22] MEDS: MIDODRINE HCL 10 MG TAB PO SCH (06:03)
[2020-06-22 08:00] VITALS: BP 89/58
[2020-06-22 08:56] VITALS: BP 89/58
[2020-06-22] MEDS: LACTULOSE 20Gm/30ML SOLN PO SCH (10:00)
[2020-06-22] MEDS: PANTOPRAZOLE 40 MG TAB PO SCH (10:00)
[2020-06-22 12:37] VITALS: BP 84/55
== END 2020-06-22 12:20 | disposition hospice, home (50) | DRG 432 ==
LOC: EDBD 19:53 → EDSEX 19:53 → ER 19:53 → OVERFLOW 19:54 → CENTRAL 06-16 01:05
PROVIDERS: ADMIT Hospitalist; ATTEND Internal Medicine
PROC: 0W9G3ZZ Drainage of Peritoneal Cavity, Percutaneous Approach (ICD-10-PCS; principal; 2020-06-18)
DX: K70.31 Alcoholic cirrhosis of liver with ascites (principal); K72.00 Acute and subacute hepatic failure without coma; E43 Unspecified severe protein-calorie malnutrition; N17.0 Acute kidney failure with tubular necrosis; J90 Pleural effusion, not elsewhere classified; J44.9 Chronic obstructive pulmonary disease, unspecified; D64.9 Anemia, unspecified; K72.10 Chronic hepatic failure without coma; I95.9 Hypotension, unspecified; Z66 Do not resuscitate; F17.210 Nicotine dependence, cigarettes, uncomplicated; F10.10 Alcohol abuse, uncomplicated; Z91.19 Patient's noncompliance with other medical treatment and regimen; Z68.25 Body mass index [BMI] 25.0-25.9, adult
CPT/HCPCS: 10022; 36415; 71250; 74176; 76942; 80048; 80053; 80061; 80320; 82140; 83036; 83735; 83880; 85025; 85610; 85730; 87081; 93005; 94640; 97110; 97163; 97530; G0378; J1956; P9047